=== PATIENT | male | born 1970 | race Two or more races ===

== ENCOUNTER 2017-06-15 14:04 | Emergency (ER) | payer OTHER ==
[~2017-06-15] VITALS: Wt 81.1 kg
[~2017-06-15 14:04] MED LIST: NAPROXEN; TRAMADOL
[2017-06-15] MEDS ORDERED: TETRACAINE 0.5% 4 ML OPH LEFT EYE STA (15:54)
[2017-06-15] MEDS ORDERED: FLUORESCEIN STRIP LEFT EYE ONE (16:00)
[2017-06-15] MEDS ORDERED: ERYT1OIN6 OP (16:32)
--- NOTE | 2017-06-15 16:53 | ERD ---
ER Documentation Chief Complaint Chief Complaint sent by clinic for l. corneal abrasion HPI 47 year old male presents to the ED with left eye pain, tearing, and redness for past couple days. Patient was seen at a clinic earlier today and was referred here since they do not have fluorescent staining. Patient denies any fevers, vision changes ROS All systems reviewed and are negative except as per history of present illness. Medications Home Meds Active Scripts Erythromycin Base (Erythromycin) 1 Gm Oint...g., 1 GM OP Q6 for 7 Days Prov:PORTIA STINSON PA-C 06/15/17 Reported Medications [Tramadol] No Conflict Check 02/11/16 [Naproxen] No Conflict Check 02/11/16 Allergies Allergies: Coded Allergies: No Known Allergies (Verified Allergy, Mild, 06/15/17) PMhx/Soc History of Surgery: Yes (BILATERAL HAND SX, RIGHT KNEE SX, LEFT ORBITAL SX) Anesthesia Reaction: No Hx Neurological Disorder: No Hx Respiratory Disorders: No Hx Cardiac Disorders: No Hx Psychiatric Problems: No Hx Miscellaneous Medical Probl: No Hx Alcohol Use: No Hx Substance Use: No Hx Tobacco Use: No Smoking Status: Never smoker Physical Exam Vitals Vital Signs Date Time Temp Pulse Resp B/P Pulse Ox O2 Delivery O2 Flow Rate FiO2 06/15/17 14:27 98.0 56 20 133/80 99 Physical Exam Const: WDWN no acute distress Head: Atraumatic Eyes: right eye conjunctival erythema no foreign body noted ENT: Normal External Ears, Nose and Mouth. Neck: Full range of motion..~ No meningismus. Resp: Clear to auscultation bilaterally Cardio: Regular rate and rhythm, no murmurs Abd: Soft, non tender, non distended. Normal bowel sounds Skin: No petechiae or rashes Back: No midline or flank tenderness Ext: No cyanosis, or edema Neur: Awake and alert Psych: Normal Mood and Affect Results 24 hrs Current Medications Medications (Trade) Dose Ordered Sig/Rosemarie Route PRN Reason Start Time Stop Time Status Last Admin Dose Admin Tetracaine HCl (Tetracaine 0.5% Steri-Unit Mitra) 1 drop ONCE STAT LEFT EYE 06/15/17 15:54 06/15/17 15:56 DC Fluorescein Sodium ([id number]) 1 strip ONCE ONCE LEFT EYE 06/15/17 16:00 06/15/17 16:01 DC Procedures/MDM This is a 47-year-old male presenting to the emergency department with left eye pain redness and tearing likely due to viral versus bacterial conjunctivitis, be empirically treated with erythromycin ointment. Is no evidence of glaucoma, foreign body. I have discussed with patient that I would like him to follow-up with an senior financial accountant tomorrow. Discussed return to the ER for any worsening signs or symptoms. Patient understands and agrees with this plan Departure Diagnosis: Primary Impression: Eye pain Condition: Stable Patient Instructions: Understanding Red Eye: Causes, Conjunctivitis, Non- Specific Referrals: [facility] Hours: Mon - Fri 9:00 AM - 5:00 PM Additional Instructions: Visite a cheung etienne galicia para un EXAMEN.Regrese a estas instalaciones si no se mejora aleksandr esperbamos o aleksandr le dijimos. Kell toda la medicina tj y aleksandr se le indic. PORTIA STINSON PA-C Jun 15, 2017 16:53
== END 2017-06-15 16:51 | disposition home or self-care (01) ==
LOC: FTE 14:04
DX: H57.12 Ocular pain, left eye (principal)
CPT/HCPCS: Z7502; Z7610; 99283

== ENCOUNTER 2017-11-17 08:55 | Day surgery (SDC) | END 2017-11-17 12:59 | disposition home or self-care (01) ==